=== PATIENT | male | born 1950 | race African-American/Black ===

== ENCOUNTER 2017-05-05 17:59 | Inpatient (IN) | payer BC, MEDICARE ==
[~2017-05-05] VITALS: Ht 175.3 cm; Wt 64.4 kg
[2017-05-05 18:18] LABS: BASOPHILS % 1.3 % (0.0-2.0); EOSINOPHILS % 1.1 % (0.0-5.0); HEMATOCRIT. 50.1 % (42.0-52.0); MEAN CORPUSCULAR HEMOGLOBIN 31.1 pg (28.0-32.0); MEAN CORPUSCULAR VOLUME 91.3 fL (80.0-94.0); MEAN PLATELET VOLUME 8.5 fl (7.4-10.4); MONOCYTES % 8.3 % (2.0-8.0); NEUTROPHILS % 55.3 % (40.0-76.0); PLATELET 237 x1000/uL (130-400); RED BLOOD CELL COUNT 5.48 mill/uL (4.7-6.1); RED CELL DISTRIBUTION WIDTH 16.2 % (11.6-14.6)
[2017-05-05 18:24] LABS: INR 1.1; PROTHROMBIN TIME 10.9 sec (9.4-11.6)
[2017-05-05 18:30] LABS: CHLORIDE 102 mEq/L (98-107)
[2017-05-05] MEDS ORDERED: NITROGLYCERIN 0.4MG TABLET SL SL ONE ×2 (18:30)
[2017-05-05 18:35] LABS: TROPONIN I < 0.02 ng/mL (0.00-0.04)
[2017-05-05] MEDS ORDERED: CLONIDINE 0.1MG TABLET PO PRN (19:45)
[2017-05-05] MEDS ORDERED: GUAIFENESIN 200MG/10ML SUGAR FREE UDC PO PRN (19:45)
[2017-05-05] MEDS ORDERED: NITROGLYCERIN 0.4MG TABLET SL SL PRN (19:45)
[2017-05-05] MEDS ORDERED: DIPHENHYDRAMINE 50MG/ML VIAL IV PRN (19:45)
[2017-05-05] MEDS ORDERED: MAGNESIUM/ALUMINUM HYDROXIDE/SIMETHICONE 30ML UDC PO PRN (19:45)
[2017-05-05] MEDS ORDERED: ONDANSETRON HCL 4MG/2ML VIAL IV PRN (19:45)
[2017-05-05] MEDS ORDERED: IPRATROPIUM/ALBUTEROL 0.5-3(2.5)MG/3ML NEB INH PRN (19:45)
[2017-05-05] MEDS ORDERED: ZOLPIDEM TARTRATE 5MG TABLET PO PRN (19:45)
[2017-05-05] MEDS ORDERED: NA PHOS,M-B/NA PHOS,DI-BA ENEMA 118ML PR PRN (19:45)
[2017-05-05] MEDS ORDERED: ACETAMINOPHEN 325MG TABLET PO PRN (19:45)
[2017-05-05] MEDS ORDERED: TRAMADOL 50MG TABLET PO PRN (19:45)
[2017-05-05] MEDS ORDERED: LORAZEPAM 0.5MG TABLET PO PRN (19:45)
[2017-05-05] MEDS ORDERED: MORPHINE SULFATE 2 MG/ML CPJ (NOT FOR IM USE) IV PRN (19:45)
[2017-05-05] MEDS ORDERED: DOCUSATE SODIUM 100MG CAPSULE PO PRN (19:45)
[2017-05-05] MEDS ORDERED: MORPHINE SULFATE 4 MG/ML CPJ (NOT FOR IM USE) IV PRN (20:30)
[2017-05-05] MEDS ORDERED: ENALAPRIL 2.5MG/2ML VIAL 2ML IV ONE (21:30)
[2017-05-05] MEDS ORDERED: FUROSEMIDE 40MG/4ML VIAL IVP ONE (21:30)
[2017-05-05 22:32] LABS: CREATINE KINASE MB FRACTION 1.6 ng/mL (0.5-3.6); TROPONIN I 0.04 ng/mL (0.00-0.04)
[2017-05-06] VITALS (18 sets, daily range): BP systolic 94–153; BP diastolic 49–81
[2017-05-06] MEDS ORDERED: LISI10TA5 PO (05:20)
[2017-05-06] MEDS ORDERED: [UNRECOGNIZED DRUG - CODE] TP (05:20)
[2017-05-06] MEDS ORDERED: CLOT15CR2 TP (05:20)
[2017-05-06] MEDS ORDERED: METF10002 PO (05:20)
[2017-05-06] MEDS ORDERED: ASPI-1160 PO (05:20)
[2017-05-06] MEDS ORDERED: CLOB30CR27 TP (05:20)
[2017-05-06] MEDS ORDERED: METO-385 PO (05:20)
[2017-05-06] MEDS ORDERED: ATOR-2 PO (05:20)
[2017-05-06] MEDS ORDERED: PANT40TA4 PO (05:20)
[2017-05-06 07:45] LABS: CREATINE KINASE MB FRACTION 1.2 ng/mL (0.5-3.6); TROPONIN I 0.04 ng/mL (0.00-0.04)
[2017-05-06] MEDS: ENOXAPARIN 40MG/0.4ML SYR SUBCUT SCH (09:33)
[2017-05-06] MEDS: GUAIFENESIN/DM 600MG/30MG ER TAB 12HR PO SCH ×2 (09:34→21:37)
[2017-05-06] MEDS: LISINOPRIL 20MG TABLET PO SCH ×2 (09:35→21:38)
[2017-05-06] MEDS: SPIRONOLACTONE 25MG TABLET PO SCH ×2 (09:35→21:38)
[2017-05-06] MEDS: ASPIRIN 325MG EC TABLET PO SCH (09:35)
[2017-05-06] MEDS: FUROSEMIDE 40MG/4ML VIAL IVP SCH ×2 (09:36→21:38)
[2017-05-06] MEDS: FAMOTIDINE 20MG/2ML VIAL IV SCH ×2 (09:36→21:38)
[2017-05-06] MEDS ORDERED: DEXTROSE 50% WATER 50ML SYRINGE IV PRN (11:30)
[2017-05-06] MEDS: INSULIN LISPRO 100 UNITS/ML SUBCUT SCH ×3 (12:50→21:53)
[2017-05-06] MEDS: BLOOD SUGAR DIAGNOSTIC STRIP TEST SCH ×3 (12:51→21:38)
[2017-05-06] MEDS ORDERED: METOCLOPRAMIDE HCL 10MG/2ML VIAL IV NR (13:30)
[2017-05-06 13:45] LABS: BG BASE EXCESS 0.8 mmol/L (-2.0-2.0); BG CARBOXYHEMOGLOBIN 1.4 % (0.5-1.5); BG DEOXYHEMOGLOBIN 4.2 % (0.0-5.0); BG HCO3 ACT 25.2 mmol/L (22.0-26.0); BG METHEMOGLOBIN 0.3 % (0.0-1.5); BG OXYGEN SATURATION 95.7 % (92.0-98.5); BG OXYHEMOGLOBIN 94.1 % (94.0-97.0); BG PCO2 39.8 mmHg (35.0-45.0); BG PO2 80.6 mmHg (75.0-100.0); BG SAMPLE SITE RIGHT RADIAL; BG TOTAL HEMOGLOBIN 15.2 g/dL (12.0-18.0); BG VENT MODE NASAL CANNULA
[2017-05-06] MEDS ORDERED: CHLORPROMAZINE HCL 25MG/1ML AMP IM NR (18:00)
[2017-05-07] VITALS (10 sets, daily range): BP systolic 109–130; BP diastolic 53–75
[2017-05-07] MEDS: INSULIN LISPRO 100 UNITS/ML SUBCUT SCH ×2 (08:00→13:13)
[2017-05-07 08:06] LABS: BASOPHILS % 0.6 % (0.0-2.0); EOSINOPHILS % 0.9 % (0.0-5.0); HEMATOCRIT. 42.4 % (42.0-52.0); HEMOGLOBIN. 14.1 g/dL (14.0-18.0); LYMPHOCYTES % 20.2 % (20.0-50.0); MEAN CORPUSCULAR HEMOGLOBIN 29.9 pg (28.0-32.0); MEAN PLATELET VOLUME 8.7 fl (7.4-10.4); MONOCYTES % 9.7 % (2.0-8.0); NEUTROPHILS % 68.6 % (40.0-76.0); PLATELET 207 x1000/uL (130-400); RED BLOOD CELL COUNT 4.71 mill/uL (4.7-6.1); RED CELL DISTRIBUTION WIDTH 15.4 % (11.6-14.6)
[2017-05-07] MEDS: BLOOD SUGAR DIAGNOSTIC STRIP TEST SCH ×2 (08:16→13:06)
[2017-05-07 08:22] LABS: CHLORIDE 102 mEq/L (98-107)
[2017-05-07] MEDS: LISINOPRIL 20MG TABLET PO SCH (09:58)
[2017-05-07] MEDS: FAMOTIDINE 20MG/2ML VIAL IV SCH (10:01)
[2017-05-07] MEDS: FUROSEMIDE 40MG/4ML VIAL IVP SCH (10:01)
[2017-05-07] MEDS: ASPIRIN 325MG EC TABLET PO SCH (10:06)
[2017-05-07] MEDS: GUAIFENESIN/DM 600MG/30MG ER TAB 12HR PO SCH (10:06)
[2017-05-07] MEDS: SPIRONOLACTONE 25MG TABLET PO SCH (10:08)
[2017-05-07] MEDS: ENOXAPARIN 40MG/0.4ML SYR SUBCUT SCH (10:10)
== END 2017-05-07 15:08 | disposition home or self-care (01) | DRG 291 ==
LOC: ER 18:11 → EDBEDREQ 18:32 → 5EST 19:09 → EDBEDREQ 19:18 → EDBEDREQTM 19:18 → SUPCPDRO 19:31 → ENRESERV 22:47
PROVIDERS: ADMIT Internal Medicine; ATTEND Internal Medicine
PROC: 5A09357 Assistance with Respiratory Ventilation, Less than 24 Consecutive Hours, Continuous Positive Airway Pressure (ICD-10-PCS; principal; 2017-05-05)
DX: I11.0 Hypertensive heart disease with heart failure (principal); J96.00 Acute respiratory failure, unspecified whether with hypoxia or hypercapnia; J84.9 Interstitial pulmonary disease, unspecified; E87.1 Hypo-osmolality and hyponatremia; I16.1 Hypertensive emergency; E11.9 Type 2 diabetes mellitus without complications; I50.43 Acute on chronic combined systolic (congestive) and diastolic (congestive) heart failure; F17.210 Nicotine dependence, cigarettes, uncomplicated; I25.10 Atherosclerotic heart disease of native coronary artery without angina pectoris; E78.5 Hyperlipidemia, unspecified; I25.2 Old myocardial infarction; Z95.5 Presence of coronary angioplasty implant and graft; Z88.0 Allergy status to penicillin
CPT/HCPCS: 36415; 36600; 71045; 80048; 80053; 80061; 82375; 82550; 82553; 82805; 82962; 83036; 83880; 84484; 85025; 85610; 93005; 93306; 93970; 94660; 99291; J1650; J1815; J1940; J2405; J2765; J3230; J3490

== ENCOUNTER 2018-04-01 17:06 | Inpatient (IN) | payer MEDICARE, OTHER ==
[~2018-04-01] VITALS: Ht 175.3 cm; Wt 63.0 kg
[~2018-04-01 17:06] MED LIST: ASPI-1160 PO; ATOR-2 PO; CLOB30CR27 TP; CLOT15CR2 TP; LISI10TA5 PO; METF-416 PO; METO-385 PO; PANT40TA4 PO; [UNRECOGNIZED DRUG - CODE] TP
[2018-04-01] MEDS ORDERED: ALBUTEROL (0.083%) 2.5MG/3ML NEB HHN STA (17:09)
[2018-04-01] MEDS ORDERED: ASPIRIN 81MG TABLET PO ONE (17:15)
[2018-04-01 17:44] LABS: BG BASE EXCESS -2.3 mmol/L (-2.0-2.0); BG BILEVEL POS AIRWAY PRESSURE 20/5; BG CARBOXYHEMOGLOBIN 3.2 % (0.5-1.5); BG DEOXYHEMOGLOBIN 2.3 % (0.0-5.0); BG FRACTION INSPIRED OXYGEN 100; BG HCO3 ACT 23.3 mmol/L (22.0-26.0); BG OXYGEN SATURATION 97.6 % (92.0-98.5); BG OXYHEMOGLOBIN 94.5 % (94.0-97.0); BG PCO2 42.9 mmHg (35.0-45.0); BG PH 7.352 (7.350-7.450); BG SAMPLE SITE RIGHT RADIAL; BG TOTAL HEMOGLOBIN 13.7 g/dL (12.0-18.0); BG VENT MODE MASK - BIPAP
[2018-04-01 18:08] LABS: CHLORIDE 104 mEq/L (98-107)
[2018-04-01 18:21] LABS: BASOPHILS % 0.6 % (0.0-2.0); EOSINOPHILS % 0.9 % (0.0-5.0); HEMATOCRIT. 41.7 % (42.0-52.0); HEMOGLOBIN. 13.6 g/dL (14.0-18.0); LYMPHOCYTES % 18.6 % (20.0-50.0); MEAN CORPUSCULAR VOLUME 88.8 fL (80.0-94.0); MEAN PLATELET VOLUME 8.9 fl (7.4-10.4); MONOCYTES % 8.5 % (2.0-8.0); NEUTROPHILS % 71.4 % (40.0-76.0); PLATELET 196 x1000/uL (130-400); RED CELL DISTRIBUTION WIDTH 18.2 % (11.6-14.6)
[2018-04-01 18:26] LABS: INR 1.1; PROTHROMBIN TIME 11.4 sec (9.1-11.1)
[2018-04-01] MEDS ORDERED: HEPARIN 25,000 UNITS PREMIX 500 ML IV ONE (18:30)
[2018-04-01] MEDS ORDERED: HEPARIN 5000 UNITS/ML VIAL IV ONE (18:30)
[2018-04-01] MEDS ORDERED: FUROSEMIDE 40MG/4ML VIAL IVP ONE (19:45)
[2018-04-01] MEDS ORDERED: HEPARIN BOLUS PRN aPTT <30 IV (20:00)
[2018-04-01] MEDS ORDERED: HEPARIN 25,000 UNITS PREMIX 500 ML IV SCH (20:00)
[2018-04-01] MEDS ORDERED: HEPARIN 60 UNITS/KG BOLUS IV SCH (20:00)
[2018-04-01 22:00] VITALS: BP 149/84
[2018-04-01] MEDS ORDERED: MORPHINE SULFATE 4 MG/ML CPJ (NOT FOR IM USE) IV PRN (22:15)
[2018-04-01] MEDS ORDERED: ENOXAPARIN 40MG/0.4ML SYR SUBCUT SCH (22:15)
[2018-04-01] MEDS ORDERED: IPRATROPIUM/ALBUTEROL 0.5-3(2.5)MG/3ML NEB INH PRN (22:15)
[2018-04-01] MEDS ORDERED: ACETAMINOPHEN 325MG TABLET PO PRN (22:15)
[2018-04-01] MEDS ORDERED: GUAIFENESIN 200MG/10ML SUGAR FREE UDC PO PRN (22:15)
[2018-04-01] MEDS ORDERED: ONDANSETRON HCL 4MG/2ML INJ IV PRN (22:15)
[2018-04-01] MEDS ORDERED: HYDROCODONE/ACETAMINOPHEN 5/325MG TABLET PO PRN (22:15)
[2018-04-01] MEDS ORDERED: LORAZEPAM 2MG/ML CPJ IV PRN (22:15)
[2018-04-01 22:30] VITALS: BP 148/84
[2018-04-02] VITALS (11 sets, daily range): BP systolic 127–151; BP diastolic 52–88
[2018-04-02 02:43] LABS: BASOPHILS % 0.5 % (0.0-2.0); EOSINOPHILS % 0.3 % (0.0-5.0); HEMATOCRIT. 39.1 % (42.0-52.0); LYMPHOCYTES % 18.5 % (20.0-50.0); MEAN CORPUSCULAR HEMOGLOBIN 28.9 pg (28.0-32.0); MEAN CORPUSCULAR VOLUME 87.1 fL (80.0-94.0); MEAN PLATELET VOLUME 8.4 fl (7.4-10.4); MONOCYTES % 9.9 % (2.0-8.0); NEUTROPHILS % 70.8 % (40.0-76.0); PLATELET 170 x1000/uL (130-400); RED BLOOD CELL COUNT 4.48 mill/uL (4.7-6.1); RED CELL DISTRIBUTION WIDTH 17.3 % (11.6-14.6)
[2018-04-02 02:48] LABS: CHLORIDE 104 mEq/L (98-107)
[2018-04-02 02:59] LABS: CREATINE KINASE 91 IU/L (39-308)
[2018-04-02 03:01] LABS: CREATINE KINASE MB FRACTION 1.8 ng/mL (0.5-3.6)
[2018-04-02] MEDS: HEPARIN BOLUS PRN aPTT 30-44 IV ×2 (05:34→12:52)
[2018-04-02] MEDS: ASPIRIN 81MG TABLET PO SCH (08:20)
[2018-04-02] MEDS: MULTIVITAMINS,THER W-MINERALS TABLET PO SCH (08:20)
[2018-04-02] MEDS ORDERED: ASPIRIN 325MG EC TABLET PO SCH (09:00)
[2018-04-02] MEDS ORDERED: POTASSIUM CHLORIDE 20MEQ TABLET SR PO NR (11:30)
[2018-04-02] MEDS: FUROSEMIDE 40MG/4ML VIAL IVP SCH ×2 (11:44→18:05)
[2018-04-02 12:57] LABS: CREATINE KINASE MB FRACTION 1.2 ng/mL (0.5-3.6)
[2018-04-02] MEDS ORDERED: METHYLPREDNISOLONE SOD SUCC 125 MG/2 ML VIAL IV SCH (14:00)
[2018-04-02 15:38] LABS: CLARITY URINE CLEAR (CLEAR); COLOR URINE YELLOW (YELLOW); KETONES URINE NEGATIVE (NEGATIVE); LEUKOCYTE ESTERASE URINE NEGATIVE (NEGATIVE); NITRITE URINE NEGATIVE (NEGATIVE); OCCULT BLOOD URINE TRACE (NEGATIVE); PROTEIN URINE TRACE (NEGATIVE); SPECIFIC GRAVITY URINE 1.008 (1.005-1.030)
[2018-04-02 16:16] LABS: *AMPHETAMINES SCREEN URINE NEGATIVE (NEGATIVE); *BARBITURATES SCREEN URINE NEGATIVE (NEGATIVE); *BENZODIAZEPINES SCREEN URINE NEGATIVE (NEGATIVE); *COCAINE SCREEN URINE NEGATIVE (NEGATIVE); METHADONE URINE SCREEN NEGATIVE (NEGATIVE); OPIATES URINE SCREEN NEGATIVE (NEGATIVE)
[2018-04-02 16:17] LABS: CANNABINOID URINE SCREEN NEGATIVE (NEGATIVE); PHENCYCLIDINE URINE SCREEN NEGATIVE (NEGATIVE)
[2018-04-02] MEDS: NICOTINE 14MG PATCH TD SCH (20:15)
[2018-04-02] MEDS: BUDESONIDE 0.5MG/2ML NEB HHN SCH (21:12)
[2018-04-02] MEDS: NITROGLYCERIN OINT 1GM/INCH UDPKT TD SCH (21:39)
[2018-04-02] MEDS ORDERED: IOHEXOL-350 100 ML BOTTLE ONE (23:05)
[2018-04-02] MEDS ORDERED: DEXTROSE 50% WATER 50ML SYRINGE IV PRN (23:30)
[2018-04-03] VITALS (24 sets, daily range): BP systolic 115–151; BP diastolic 47–88
[2018-04-03] MEDS: IPRATROPIUM/ALBUTEROL 0.5-3(2.5)MG/3ML NEB HHN SCH ×3 (01:06→13:10)
[2018-04-03] MEDS: NITROGLYCERIN OINT 1GM/INCH UDPKT TD SCH ×3 (03:10→14:10)
[2018-04-03] MEDS: INSULIN LISPRO 100 UNITS/ML SUBCUT SCH ×3 (07:20→17:22)
[2018-04-03 07:24] LABS: CHLORIDE 103 mEq/L (98-107)
[2018-04-03 07:25] LABS: BASOPHILS % 0.3 % (0.0-2.0); HEMATOCRIT. 35.6 % (42.0-52.0); HEMOGLOBIN. 12.1 g/dL (14.0-18.0); LYMPHOCYTES % 15.3 % (20.0-50.0); MEAN CORPUSCULAR HEMOGLOBIN 29.4 pg (28.0-32.0); MEAN CORPUSCULAR VOLUME 86.9 fL (80.0-94.0); MEAN PLATELET VOLUME 8.7 fl (7.4-10.4); NEUTROPHILS % 74.4 % (40.0-76.0); PLATELET 164 x1000/uL (130-400); RED CELL DISTRIBUTION WIDTH 17.7 % (11.6-14.6)
[2018-04-03 07:42] LABS: CREATINE KINASE MB FRACTION 1.4 ng/mL (0.5-3.6)
[2018-04-03] MEDS: ASPIRIN 81MG TABLET PO SCH (08:21)
[2018-04-03] MEDS: FUROSEMIDE 40MG/4ML VIAL IVP SCH ×2 (08:21→17:20)
[2018-04-03] MEDS: BUDESONIDE 0.5MG/2ML NEB HHN SCH (08:46)
[2018-04-03] MEDS: NICOTINE 14MG PATCH TD SCH (09:00)
[2018-04-03] MEDS ORDERED: LEVOFLOXACIN 500MG TABLET PO SCH (11:00)
[2018-04-03] MEDS: BLOOD SUGAR DIAGNOSTIC STRIP TEST SCH ×2 (11:50→16:50)
[2018-04-03] MEDS ORDERED: IODIXANOL 320MG/ML 100 ML BOTTLE IV ONE (11:59)
[2018-04-03] MEDS ORDERED: IOHEXOL-300 100 ML BOTTLE ONE (11:59)
[2018-04-03] MEDS ORDERED: LIDOCAINE HCL 1% 20ML VIAL (Pyxis) INJ ONE (11:59)
[2018-04-03] MEDS ORDERED: ASPIRIN/SOD BICARB/CITRIC ACID 324MG TAB EFF ONE (12:00)
[2018-04-03] MEDS ORDERED: MIDAZOLAM HCL 2 MG/2 ML VIAL ONE (12:12)
[2018-04-03] MEDS ORDERED: FENTANYL CITRATE/PF 50MCG/ML 2ML VIAL ONE (12:12)
[2018-04-03] MEDS ORDERED: ONDANSETRON HCL 4MG/2ML INJ IV PRN (13:00)
[2018-04-03] MEDS ORDERED: ACETAMINOPHEN 325MG TABLET PO PRN (13:00)
[2018-04-03] MEDS ORDERED: SODIUM CHLORIDE 0.45% 400 ML IV ONE (13:00)
[2018-04-03] MEDS ORDERED: MORPHINE SULFATE 4 MG/ML CPJ (NOT FOR IM USE) IV PRN (13:00)
[2018-04-03] MEDS ORDERED: ATROPINE SULFATE 1MG/10ML SYR IV PRN (13:00)
[2018-04-03] MEDS: MULTIVITAMINS,THER W-MINERALS TABLET PO SCH (14:07)
[2018-04-03] MEDS ORDERED: HEPARIN SODIUM 1,000 UNIT/1ML VIAL IV ONE (15:49)
[2018-04-03] MEDS ORDERED: NITROGLYCERIN 50MCG/ML 10ML VIAL (CATH LAB) IV ONE (16:01)
[2018-04-03] MEDS ORDERED: NICARDIPINE 100MCG/ML 10ML VIAL (CATH LAB) IV ONE (16:01)
[2018-04-03] MEDS ORDERED: METHYLPREDNISOLONE SOD SUCC 125 MG/2 ML VIAL IV SCH (22:00)
== END 2018-04-03 20:25 | disposition left against medical advice (07) | DRG 280 ==
LOC: ER 17:06 → 3WST 19:41 → EDBEDREQTM 19:45 → EDBEDREQSVC 19:45 → EDBEDREQ 19:45 → CANRESERV 19:56 → ENRESERV 19:56
PROVIDERS: ADMIT Internal Medicine Nephrology; ATTEND Internal Medicine Nephrology
PROC: 5A09357 Assistance with Respiratory Ventilation, Less than 24 Consecutive Hours, Continuous Positive Airway Pressure (ICD-10-PCS; principal; 2018-04-01)
PROC: 4A023N7 Measurement of Cardiac Sampling and Pressure, Left Heart, Percutaneous Approach (ICD-10-PCS; 2018-04-03)
PROC: B2111ZZ Fluoroscopy of Multiple Coronary Arteries using Low Osmolar Contrast (ICD-10-PCS; 2018-04-03)
PROC: B2181ZZ Fluoroscopy of Left Internal Mammary Bypass Graft using Low Osmolar Contrast (ICD-10-PCS; 2018-04-03)
PROC: B2151ZZ Fluoroscopy of Left Heart using Low Osmolar Contrast (ICD-10-PCS; 2018-04-03)
DX: I21.4 Non-ST elevation (NSTEMI) myocardial infarction (principal); J96.00 Acute respiratory failure, unspecified whether with hypoxia or hypercapnia; I50.23 Acute on chronic systolic (congestive) heart failure; E43 Unspecified severe protein-calorie malnutrition; J44.1 Chronic obstructive pulmonary disease with (acute) exacerbation; I25.10 Atherosclerotic heart disease of native coronary artery without angina pectoris; I11.0 Hypertensive heart disease with heart failure; E11.65 Type 2 diabetes mellitus with hyperglycemia; E78.5 Hyperlipidemia, unspecified; K21.9 Gastro-esophageal reflux disease without esophagitis; E78.00 Pure hypercholesterolemia, unspecified; I25.5 Ischemic cardiomyopathy; Z53.21 Procedure and treatment not carried out due to patient leaving prior to being seen by health care provider; F17.210 Nicotine dependence, cigarettes, uncomplicated; I25.2 Old myocardial infarction; Z95.5 Presence of coronary angioplasty implant and graft; Z68.20 Body mass index [BMI] 20.0-20.9, adult; Z88.0 Allergy status to penicillin; Z79.899 Other long term (current) drug therapy; Z79.82 Long term (current) use of aspirin
CPT/HCPCS: 36415; 36600; 71045; 71275; 80048; 80305; 82375; 82550; 82553; 82805; 82962; 83735; 83880; 84443; 84484; 85379; 87804; 93005; 93306; 93459; 93970; 94640; 94660; 96374; 96375; 97162; 99291; C1769; C1887; C1893; J1644; J1815; J1940; J2250; J2930; J3010; J3490; J7050; J7611; J7620; J7626; Q9967

== ENCOUNTER 2019-04-20 01:21 | Inpatient (IN) | payer MEDICARE, OTHER ==
[2019-04-20] VITALS (9 sets, daily range): BP systolic 96–138; BP diastolic 59–84
[~2019-04-20] VITALS: Ht 175.3 cm; Wt 63.6 kg
[~2019-04-20 01:21] MED LIST changes: +BACL20TA MT; -PANT40TA4 PO
[2019-04-20] MEDS ORDERED: NITROGLYCERIN OINT 1GM/INCH UDPKT TD ONE (01:30)
[2019-04-20] MEDS ORDERED: FUROSEMIDE 40MG/4ML VIAL IV ONE (01:30)
[2019-04-20] MEDS ORDERED: ASPIRIN 81MG TABLET PO ONE (01:30)
[2019-04-20 01:57] LABS: BG BASE EXCESS -4.5 mmol/L (-2.0-2.0); BG BILEVEL POS AIRWAY PRESSURE 15/5; BG DEOXYHEMOGLOBIN 5.2 % (0.0-5.0); BG FRACTION INSPIRED OXYGEN 60; BG HCO3 ACT 21.1 mmol/L (22.0-26.0); BG METHEMOGLOBIN 0.2 % (0.0-1.5); BG OXYGEN SATURATION 94.6 % (92.0-98.5); BG OXYHEMOGLOBIN 90.6 % (94.0-97.0); BG PCO2 40.5 mmHg (35.0-45.0); BG PH 7.334 (7.350-7.450); BG PO2 82.2 mmHg (75.0-100.0); BG SAMPLE SITE RIGHT RADIAL; BG TOTAL HEMOGLOBIN 11.6 g/dL (12.0-18.0); BG VENT MODE MASK - BIPAP; BG VENT RATE 16 set
[2019-04-20 02:06] LABS: CHLORIDE 104 mEq/L (98-107); HEMATOCRIT. 33.4 % (42.0-52.0); HEMOGLOBIN. 10.5 g/dL (14.0-18.0); MEAN CORPUSCULAR HEMOGLOBIN 21.5 pg (28.0-32.0); MEAN CORPUSCULAR VOLUME 68.1 fL (80.0-94.0); MEAN PLATELET VOLUME 8.8 fl (7.4-10.4); PLATELET 223 x1000/uL (130-400); RED BLOOD CELL COUNT 4.91 mill/uL (4.7-6.1); RED CELL DISTRIBUTION WIDTH 21.6 % (11.6-14.6)
[2019-04-20 02:08] LABS: PROTHROMBIN TIME 11.2 sec (9.6-11.0)
[2019-04-20] MEDS ORDERED: GUAIFENESIN 200MG/10ML SUGAR FREE UDC PO PRN (06:00)
[2019-04-20] MEDS ORDERED: ACETAMINOPHEN 325MG TABLET PO PRN (06:00)
[2019-04-20] MEDS ORDERED: ONDANSETRON HCL 4MG/2ML INJ IV PRN (06:00)
[2019-04-20] MEDS ORDERED: DOCUSATE SODIUM 100MG CAPSULE PO PRN (06:00)
[2019-04-20] MEDS ORDERED: MAGNESIUM/ALUMINUM HYDROXIDE/SIMETHICONE 30ML UDC PO PRN (06:00)
[2019-04-20] MEDS ORDERED: CLONIDINE 0.1MG TABLET PO PRN (06:00)
[2019-04-20] MEDS ORDERED: IPRATROPIUM/ALBUTEROL 0.5-3(2.5)MG/3ML NEB NEB PRN (06:00)
[2019-04-20] MEDS ORDERED: METOLAZONE 10MG TABLET PO SCH (06:00)
[2019-04-20] MEDS ORDERED: NITROGLYCERIN 0.4MG TABLET SL SL PRN (06:00)
[2019-04-20] MEDS ORDERED: KETOROLAC 15MG/ML VIAL IV PRN (06:15)
[2019-04-20] MEDS: FUROSEMIDE 40MG/4ML VIAL IV SCH ×2 (06:44→17:18)
[2019-04-20] MEDS: SPIRONOLACTONE 25MG TABLET PO SCH ×2 (06:45→17:19)
[2019-04-20] MEDS: GUAIFENESIN 600MG ER TABLET PO SCH ×2 (08:08→20:47)
[2019-04-20] MEDS: ENOXAPARIN 40MG/0.4ML SYR SUBCUT SCH (08:08)
[2019-04-20] MEDS: FAMOTIDINE 20MG TABLET PO SCH ×2 (08:08→20:47)
[2019-04-20] MEDS: LISINOPRIL 2.5MG TABLET PO SCH ×2 (08:09→20:49)
[2019-04-20] MEDS: ASCORBIC ACID 500 MG TABLET PO SCH ×2 (08:09→20:47)
[2019-04-20 08:55] LABS: PLATELET ESTIMATE NORMAL
[2019-04-20 10:53] LABS: FOLIC ACID (FOLATE) SERUM 18.9 ng/mL (>5.38)
[2019-04-20] MEDS ORDERED: DEXTROSE 50% WATER 50ML SYRINGE IV PRN (12:00)
[2019-04-20] MEDS: BLOOD SUGAR DIAGNOSTIC STRIP TEST SCH ×3 (13:08→20:49)
[2019-04-20] MEDS: INSULIN LISPRO 100 UNITS/ML SUBCUT SCH ×3 (13:08→21:59)
[2019-04-20 15:28] LABS: CREATINE KINASE MB FRACTION 1.6 ng/mL (0.5-3.6)
[2019-04-20] MEDS ORDERED: ZOLPIDEM TARTRATE 5MG TABLET PO PRN (21:00)
[2019-04-21] VITALS (10 sets, daily range): BP systolic 97–119; BP diastolic 55–70
[2019-04-21] MEDS: FUROSEMIDE 40MG/4ML VIAL IV SCH ×2 (05:59→18:16)
[2019-04-21] MEDS: SPIRONOLACTONE 25MG TABLET PO SCH ×2 (06:00→18:16)
[2019-04-21 06:14] LABS: CHLORIDE 99 mEq/L (98-107)
[2019-04-21 06:35] LABS: HEMATOCRIT. 33.6 % (42.0-52.0); HEMOGLOBIN. 10.8 g/dL (14.0-18.0); MEAN CORPUSCULAR HEMOGLOBIN 21.6 pg (28.0-32.0); MEAN PLATELET VOLUME 8.6 fl (7.4-10.4); PLATELET 229 x1000/uL (130-400); RED BLOOD CELL COUNT 5.01 mill/uL (4.7-6.1); RED CELL DISTRIBUTION WIDTH 21.5 % (11.6-14.6)
[2019-04-21] MEDS: INSULIN LISPRO 100 UNITS/ML SUBCUT SCH ×4 (08:00→20:51)
[2019-04-21] MEDS: BLOOD SUGAR DIAGNOSTIC STRIP TEST SCH ×4 (08:52→20:53)
[2019-04-21] MEDS: ENOXAPARIN 40MG/0.4ML SYR SUBCUT SCH (08:58)
[2019-04-21] MEDS: FAMOTIDINE 20MG TABLET PO SCH ×2 (08:59→20:52)
[2019-04-21] MEDS: GUAIFENESIN 600MG ER TABLET PO SCH ×2 (08:59→20:53)
[2019-04-21] MEDS: ASCORBIC ACID 500 MG TABLET PO SCH ×2 (08:59→20:53)
[2019-04-21] MEDS: LISINOPRIL 2.5MG TABLET PO SCH ×2 (09:00→20:53)
[2019-04-21 13:48] LABS: PLATELET ESTIMATE NORMAL
[2019-04-22] VITALS (9 sets, daily range): BP systolic 94–144; BP diastolic 56–76
[2019-04-22] MEDS: FUROSEMIDE 40MG/4ML VIAL IV SCH (06:01)
[2019-04-22] MEDS: SPIRONOLACTONE 25MG TABLET PO SCH (06:03)
[2019-04-22] MEDS: BLOOD SUGAR DIAGNOSTIC STRIP TEST SCH (07:30)
[2019-04-22] MEDS: LISINOPRIL 2.5MG TABLET PO SCH (09:00)
[2019-04-22] MEDS: FAMOTIDINE 20MG TABLET PO SCH (09:10)
[2019-04-22] MEDS: GUAIFENESIN 600MG ER TABLET PO SCH (09:10)
[2019-04-22] MEDS: ASCORBIC ACID 500 MG TABLET PO SCH (09:11)
[2019-04-22] MEDS: ENOXAPARIN 40MG/0.4ML SYR SUBCUT SCH (09:12)
[2019-04-22] MEDS: INSULIN LISPRO 100 UNITS/ML SUBCUT SCH (09:13)
== END 2019-04-22 13:15 | disposition home or self-care (01) | DRG 189 ==
LOC: ER 01:21 → 5EST 03:41 → ENRESERV 04:06
PROVIDERS: ADMIT Internal Medicine; ATTEND Internal Medicine
PROC: 5A09357 Assistance with Respiratory Ventilation, Less than 24 Consecutive Hours, Continuous Positive Airway Pressure (ICD-10-PCS; principal; 2019-04-20)
DX: J96.00 Acute respiratory failure, unspecified whether with hypoxia or hypercapnia (principal); I50.43 Acute on chronic combined systolic (congestive) and diastolic (congestive) heart failure; I42.9 Cardiomyopathy, unspecified; I11.0 Hypertensive heart disease with heart failure; J44.9 Chronic obstructive pulmonary disease, unspecified; I25.2 Old myocardial infarction; I25.10 Atherosclerotic heart disease of native coronary artery without angina pectoris; D63.8 Anemia in other chronic diseases classified elsewhere; E11.65 Type 2 diabetes mellitus with hyperglycemia; E78.5 Hyperlipidemia, unspecified; Z79.4 Long term (current) use of insulin; Z79.899 Other long term (current) drug therapy; Z95.1 Presence of aortocoronary bypass graft; Z95.5 Presence of coronary angioplasty implant and graft; Z82.49 Family history of ischemic heart disease and other diseases of the circulatory system; Z83.3 Family history of diabetes mellitus; Z87.891 Personal history of nicotine dependence; Z79.82 Long term (current) use of aspirin; Z88.8 Allergy status to other drugs, medicaments and biological substances
CPT/HCPCS: 36415; 36600; 71045; 80053; 80061; 82375; 82550; 82553; 82607; 82746; 82805; 82962; 83036; 83540; 83550; 83735; 83880; 84100; 84484; 85025; 93005; 93970; 94660; 96374; 99291; J1650; J1815; J1940; J2405

== ENCOUNTER 2019-07-17 01:35 | Inpatient (IN) | payer MEDICARE, OTHER ==
[~2019-07-17] VITALS: Ht 176.5 cm; Wt 70.3 kg
[2019-07-17] MEDS ORDERED: ONDANSETRON HCL 4MG/2ML INJ IV STA (01:48)
[2019-07-17] MEDS ORDERED: FUROSEMIDE 40MG/4ML VIAL IV ONE (02:00)
[2019-07-17] MEDS ORDERED: ASPIRIN 81MG TABLET PO ONE (02:00)
[2019-07-17] MEDS ORDERED: NITROGLYCERIN OINT 1GM/INCH UDPKT TD ONE (02:00)
[2019-07-17 02:14] LABS: CHLORIDE 104 mEq/L (98-107)
[2019-07-17 02:17] LABS: HEMATOCRIT. 36.2 % (42.0-52.0); HEMOGLOBIN. 11.6 g/dL (14.0-18.0); MEAN CORPUSCULAR HEMOGLOBIN 23.3 pg (28.0-32.0); MEAN CORPUSCULAR VOLUME 72.6 fL (80.0-94.0); MEAN PLATELET VOLUME 9.4 fl (7.4-10.4); PLATELET 222 x1000/uL (130-400); RED BLOOD CELL COUNT 4.99 mill/uL (4.7-6.1); RED CELL DISTRIBUTION WIDTH 26.4 % (11.6-14.6)
[2019-07-17 02:20] LABS: BG BILEVEL POS AIRWAY PRESSURE S/T: 18/5; BG CARBOXYHEMOGLOBIN 3.8 % (0.5-1.5); BG DEOXYHEMOGLOBIN 6.3 % (0.0-5.0); BG FRACTION INSPIRED OXYGEN 60; BG HCO3 ACT 21.9 mmol/L (22.0-26.0); BG METHEMOGLOBIN 0.2 % (0.0-1.5); BG OXYGEN SATURATION 93.4 % (92.0-98.5); BG OXYHEMOGLOBIN 89.7 % (94.0-97.0); BG PCO2 42.9 mmHg (35.0-45.0); BG PH 7.325 (7.350-7.450); BG PO2 76.3 mmHg (75.0-100.0); BG SAMPLE SITE RIGHT RADIAL; BG TOTAL HEMOGLOBIN 12.1 g/dL (12.0-18.0); BG VENT MODE MASK - BIPAP; BG VENT RATE 18 set
[2019-07-17 03:43] LABS: PLATELET ESTIMATE NORMAL
[2019-07-17] MEDS ORDERED: ONDANSETRON HCL 4MG/2ML INJ IV PRN (06:00)
[2019-07-17] MEDS ORDERED: MORPHINE SULFATE 2 MG/ML CPJ (NOT FOR IM USE) IV PRN (06:00)
[2019-07-17] MEDS ORDERED: DOCUSATE SODIUM 100MG CAPSULE PO PRN (06:00)
[2019-07-17] MEDS ORDERED: CLONIDINE 0.1MG TABLET PO PRN (06:00)
[2019-07-17] MEDS ORDERED: HYDROCODONE/ACETAMINOPHEN 5/325MG TABLET PO PRN (06:00)
[2019-07-17] MEDS ORDERED: ACETAMINOPHEN 325MG TABLET PO PRN (06:00)
[2019-07-17] MEDS ORDERED: GUAIFENESIN 200MG/10ML SUGAR FREE UDC PO PRN (06:00)
[2019-07-17] MEDS: ENOXAPARIN 40MG/0.4ML SYR SUBCUT SCH (08:00)
[2019-07-17] MEDS ORDERED: FUROSEMIDE 40MG/4ML VIAL IV SCH (09:00)
[2019-07-17] MEDS: AMLODIPINE 10MG TABLET PO SCH (09:03)
[2019-07-17] MEDS ORDERED: DEXTROSE 50% WATER 50ML SYRINGE IV PRN (09:15)
[2019-07-17] MEDS: BLOOD SUGAR DIAGNOSTIC STRIP TEST SCH ×3 (09:24→21:01)
[2019-07-17] MEDS: INSULIN LISPRO 100 UNITS/ML SUBCUT SCH ×2 (09:32→13:20)
[2019-07-17] MEDS ORDERED: LISINOPRIL 10MG TABLET PO NR (15:00)
[2019-07-17] MEDS ORDERED: METFORMIN HCL 500MG TABLET PO NR (17:15)
[2019-07-17] MEDS: FUROSEMIDE 40MG/4ML VIAL IV SCH (17:15)
[2019-07-17] MEDS ORDERED: BACLOFEN 10MG TABLET PO NR (17:30)
[2019-07-17] MEDS ORDERED: BACLOFEN 20MG TABLET PO NR (17:30)
[2019-07-17 22:40] VITALS: BP 107/67
[2019-07-18 00:43] VITALS: BP 104/54
[2019-07-18 04:28] VITALS: BP 106/57
[2019-07-18] MEDS ORDERED: DEXTROSE 50% WATER 50ML SYRINGE IV PRN (06:30)
[2019-07-18 06:56] LABS: BASOPHILS % 1.1 % (0.0-2.0); HEMATOCRIT. 32.9 % (42.0-52.0); HEMOGLOBIN. 10.6 g/dL (14.0-18.0); LYMPHOCYTES % 19.6 % (20.0-50.0); MEAN CORPUSCULAR HEMOGLOBIN 23.3 pg (28.0-32.0); MEAN CORPUSCULAR VOLUME 72.5 fL (80.0-94.0); MEAN PLATELET VOLUME 9.1 fl (7.4-10.4); MONOCYTES % 10.1 % (2.0-8.0); NEUTROPHILS % 67.2 % (40.0-76.0); PLATELET 172 x1000/uL (130-400); RED BLOOD CELL COUNT 4.53 mill/uL (4.7-6.1); RED CELL DISTRIBUTION WIDTH 30.6 % (11.6-14.6)
[2019-07-18] MEDS ORDERED: BLOOD SUGAR DIAGNOSTIC STRIP TEST SCH (07:20)
[2019-07-18 07:31] LABS: CHLORIDE 105 mEq/L (98-107)
[2019-07-18] MEDS ORDERED: INSULIN LISPRO 100 UNITS/ML SUBCUT SCH (07:50)
[2019-07-18] MEDS ORDERED: METFORMIN HCL 500MG TABLET PO SCH (07:50)
[2019-07-18 08:30] VITALS: BP 98/55
[2019-07-18] MEDS: AMLODIPINE 10MG TABLET PO SCH (08:50)
[2019-07-18] MEDS: ENOXAPARIN 40MG/0.4ML SYR SUBCUT SCH (08:53)
[2019-07-18] MEDS ORDERED: BACLOFEN 10MG TABLET PO SCH (09:00)
[2019-07-18] MEDS ORDERED: LISINOPRIL 10MG TABLET PO SCH (09:00)
[2019-07-18] MEDS ORDERED: CARVEDILOL 3.125 MG TABLET PO SCH (09:00)
[2019-07-18 10:27] VITALS: BP 98/56
[2019-07-18] MEDS ORDERED: PNEUMOCOCCAL 23-VAL P-SAC VAC 0.5 ML IM ONE (12:00)
[2019-07-18] MEDS ORDERED: ATORVASTATIN CALCIUM 40MG TABLET PO SCH (21:00)
== END 2019-07-18 11:35 | disposition home or self-care (01) | DRG 291 ==
LOC: ER 01:35 → 6WST 04:20 → EDBEDREQ 04:31 → EDBEDREQTM 04:31 → EDBEDREQSVC 04:31 → ENRESERV 20:49
PROVIDERS: ADMIT Hospitalist; ATTEND Hospitalist
PROC: 5A09357 Assistance with Respiratory Ventilation, Less than 24 Consecutive Hours, Continuous Positive Airway Pressure (ICD-10-PCS; principal; 2019-07-17)
DX: I11.0 Hypertensive heart disease with heart failure (principal); J96.01 Acute respiratory failure with hypoxia; E44.0 Moderate protein-calorie malnutrition; J84.9 Interstitial pulmonary disease, unspecified; I50.43 Acute on chronic combined systolic (congestive) and diastolic (congestive) heart failure; I42.9 Cardiomyopathy, unspecified; D64.9 Anemia, unspecified; E11.65 Type 2 diabetes mellitus with hyperglycemia; I25.10 Atherosclerotic heart disease of native coronary artery without angina pectoris; E78.5 Hyperlipidemia, unspecified; I34.0 Nonrheumatic mitral (valve) insufficiency; I95.9 Hypotension, unspecified; F17.210 Nicotine dependence, cigarettes, uncomplicated; Z95.1 Presence of aortocoronary bypass graft; Z88.0 Allergy status to penicillin; Z79.84 Long term (current) use of oral hypoglycemic drugs; Z79.82 Long term (current) use of aspirin; Z79.899 Other long term (current) drug therapy; Z71.6 Tobacco abuse counseling; Z68.22 Body mass index [BMI] 22.0-22.9, adult
CPT/HCPCS: 36415; 36600; 71045; 80053; 82375; 82805; 82962; 83036; 83880; 84484; 85025; 90732; 93005; 99291; J1650; J1815; J1940; J2405

== ENCOUNTER 2020-05-25 02:30 | Inpatient (IN) | payer MEDICARE, OTHER ==
[~2020-05-25] VITALS: Ht 172.7 cm; Wt 66.2 kg
[2020-05-25] VITALS (17 sets, daily range): BP systolic 97–121; BP diastolic 52–84
[~2020-05-25 02:30] MED LIST changes: -CLOT15CR2 TP; +CLOT15CR27 TP; +LISI10TA26 PO; -LISI10TA5 PO
[2020-05-25] MEDS ORDERED: ONDANSETRON HCL 4MG/2ML INJ IV STA (02:58)
[2020-05-25] MEDS ORDERED: NITROGLYCERIN OINT 1GM/INCH UDPKT TD ONE (03:00)
[2020-05-25 03:20] LABS: BG BASE EXCESS -3.3 mmol/L (-2.0-2.0); BG CARBOXYHEMOGLOBIN 4.9 % (0.5-1.5); BG FRACTION INSPIRED OXYGEN 52; BG METHEMOGLOBIN 0.1 % (0.0-1.5); BG PCO2 40.4 mmHg (35.0-45.0); BG PH 7.354 (7.350-7.450); BG PO2 46.1 mmHg (75.0-100.0); BG TOTAL HEMOGLOBIN 14.8 g/dL (12.0-18.0); BG VENT MODE MASK - SIMPLE
[2020-05-25 03:36] LABS: BASOPHILS % 0.6 % (0.0-2.0); EOSINOPHILS % 0.7 % (0.0-5.0); HEMATOCRIT. 43.6 % (42.0-52.0); HEMOGLOBIN. 13.9 g/dL (14.0-18.0); MEAN CORPUSCULAR HEMOGLOBIN 27.9 pg (28.0-32.0); MEAN CORPUSCULAR VOLUME 87.7 fL (80.0-94.0); MEAN PLATELET VOLUME 8.9 fl (7.4-10.4); MONOCYTES % 7.1 % (2.0-8.0); NEUTROPHILS % 83.6 % (40.0-76.0); PLATELET 189 x1000/uL (130-400); RED BLOOD CELL COUNT 4.98 mill/uL (4.7-6.1); RED CELL DISTRIBUTION WIDTH 18.8 % (11.6-14.6)
[2020-05-25] MEDS ORDERED: CEFTRIAXONE 1 G PREMIX 50 ML IV ONE (03:45)
[2020-05-25] MEDS ORDERED: AZITHROMYCIN 500 MG in DEXT 5% WATER 250 ML IV ONE (03:45)
[2020-05-25 03:46] LABS: CHLORIDE 105 mEq/L (98-107)
[2020-05-25 03:47] LABS: INR 1.1; PROTHROMBIN TIME 11.5 sec (9.6-11.0)
[2020-05-25] MEDS ORDERED: ALBUTEROL 6.7GM HFA INHALER ORI PRN (09:15)
[2020-05-25] MEDS ORDERED: ACETAMINOPHEN 325MG TABLET PO PRN (09:15)
[2020-05-25] MEDS ORDERED: DEXTROSE 50% WATER 50ML SYRINGE IV PRN (09:15)
[2020-05-25] MEDS: FUROSEMIDE 40MG/4ML VIAL IVP SCH ×2 (10:09→17:04)
[2020-05-25] MEDS: ENOXAPARIN 40MG/0.4ML SYR SUBCUT SCH (10:09)
[2020-05-25] MEDS: BLOOD SUGAR DIAGNOSTIC STRIP TEST SCH ×3 (12:04→21:52)
[2020-05-25] MEDS: INSULIN LISPRO 100 UNITS/ML SUBCUT SCH ×3 (12:05→21:00)
[2020-05-25 13:13] LABS: CLARITY URINE CLEAR (CLEAR); COLOR URINE YELLOW (YELLOW); KETONES URINE NEGATIVE (NEGATIVE); LEUKOCYTE ESTERASE URINE NEGATIVE (NEGATIVE); NITRITE URINE NEGATIVE (NEGATIVE); OCCULT BLOOD URINE TRACE (NEGATIVE); PROTEIN URINE 3+ (NEGATIVE); SPECIFIC GRAVITY URINE 1.014 (1.005-1.030)
[2020-05-25] MEDS: BACLOFEN 10MG TABLET PO SCH (17:04)
[2020-05-25] MEDS: CEFTRIAXONE 1,000 MG in DEXTROSE 5% WATER 50 ML IV SCH (21:52)
[2020-05-25] MEDS: ONDANSETRON HCL 4MG/2ML INJ IV PRN (22:53)
[2020-05-26] VITALS: BP 101/46
[2020-05-26 04:00] VITALS: BP 111/67
[2020-05-26] MEDS: BLOOD SUGAR DIAGNOSTIC STRIP TEST SCH ×4 (05:48→21:28)
[2020-05-26 07:44] LABS: BASOPHILS % 0.5 % (0.0-2.0); EOSINOPHILS % 2.4 % (0.0-5.0); HEMATOCRIT. 38.7 % (42.0-52.0); HEMOGLOBIN. 12.7 g/dL (14.0-18.0); LYMPHOCYTES % 15.8 % (20.0-50.0); MEAN CORPUSCULAR HEMOGLOBIN 28.9 pg (28.0-32.0); MEAN CORPUSCULAR VOLUME 88.1 fL (80.0-94.0); MEAN PLATELET VOLUME 9.3 fl (7.4-10.4); MONOCYTES % 12.4 % (2.0-8.0); NEUTROPHILS % 68.9 % (40.0-76.0); PLATELET 172 x1000/uL (130-400); RED BLOOD CELL COUNT 4.39 mill/uL (4.7-6.1); RED CELL DISTRIBUTION WIDTH 18.7 % (11.6-14.6)
[2020-05-26 08:00] VITALS: BP 119/69
[2020-05-26] MEDS: INSULIN LISPRO 100 UNITS/ML SUBCUT SCH ×4 (08:10→21:57)
[2020-05-26 08:24] LABS: BG BASE EXCESS -1.4 mmol/L (-2.0-2.0); BG CARBOXYHEMOGLOBIN 1.3 % (0.5-1.5); BG DEOXYHEMOGLOBIN 2.7 % (0.0-5.0); BG FRACTION INSPIRED OXYGEN 28; BG HCO3 ACT 23.5 mmol/L (22.0-26.0); BG METHEMOGLOBIN 0.3 % (0.0-1.5); BG OXYGEN SATURATION 97.3 % (92.0-98.5); BG OXYHEMOGLOBIN 95.7 % (94.0-97.0); BG PCO2 40.2 mmHg (35.0-45.0); BG PH 7.385 (7.350-7.450); BG PO2 97.4 mmHg (75.0-100.0); BG SAMPLE SITE RIGHT BRACHIAL; BG TOTAL HEMOGLOBIN 15.4 g/dL (12.0-18.0); BG VENT MODE NASAL CANNULA
[2020-05-26 08:33] LABS: CHLORIDE 107 mEq/L (98-107)
[2020-05-26] MEDS: FUROSEMIDE 40MG/4ML VIAL IVP SCH ×2 (09:09→17:01)
[2020-05-26] MEDS: BACLOFEN 10MG TABLET PO SCH ×3 (09:09→17:01)
[2020-05-26] MEDS: ENOXAPARIN 40MG/0.4ML SYR SUBCUT SCH (09:10)
[2020-05-26] MEDS: AZITHROMYCIN 250 MG TABLET PO SCH (09:10)
[2020-05-26] MEDS: IPRATROPIUM/ALBUTEROL 0.5-3(2.5)MG/3ML NEB HHN SCH ×3 (09:19→20:15)
[2020-05-26 11:56] LABS: HEPATITIS B SURFACE ANTIGEN NEGATIVE
[2020-05-26 12:00] VITALS: BP 144/58
[2020-05-26 12:25] LABS: HEPATITIS A AB IGM NEGATIVE (NEGATIVE)
[2020-05-26 16:00] VITALS: BP 119/58
[2020-05-26] MEDS: ONDANSETRON HCL 4MG/2ML INJ IV PRN (17:09)
[2020-05-26 20:00] VITALS: BP 134/62
[2020-05-26] MEDS: CEFTRIAXONE 1,000 MG in DEXTROSE 5% WATER 50 ML IV SCH (21:28)
[2020-05-27] VITALS: BP 130/88
[2020-05-27] MEDS: IPRATROPIUM/ALBUTEROL 0.5-3(2.5)MG/3ML NEB HHN SCH ×3 (00:12→21:52)
[2020-05-27 04:00] VITALS: BP 126/70
[2020-05-27] MEDS: BLOOD SUGAR DIAGNOSTIC STRIP TEST SCH ×4 (05:19→20:36)
[2020-05-27] MEDS: INSULIN LISPRO 100 UNITS/ML SUBCUT SCH ×4 (07:40→20:37)
[2020-05-27 08:00] VITALS: BP 130/88
[2020-05-27] MEDS: BACLOFEN 10MG TABLET PO SCH ×3 (08:43→17:09)
[2020-05-27] MEDS: AZITHROMYCIN 250 MG TABLET PO SCH (08:43)
[2020-05-27] MEDS: FUROSEMIDE 40MG/4ML VIAL IVP SCH ×2 (08:43→17:10)
[2020-05-27] MEDS: ENOXAPARIN 40MG/0.4ML SYR SUBCUT SCH (08:50)
[2020-05-27 12:00] VITALS: BP 128/71
[2020-05-27] MEDS ORDERED: EZ-HD SUSPENSION(BARIUM SULFATE 340GM) PO ONE (15:24)
[2020-05-27] MEDS ORDERED: BARIUM SULFATE 176 GM SUSP.RECON ONE (15:25)
[2020-05-27 16:30] VITALS: BP 130/67
[2020-05-27 20:00] VITALS: BP 113/63
[2020-05-27] MEDS: CEFTRIAXONE 1,000 MG in DEXTROSE 5% WATER 50 ML IV SCH (20:36)
[2020-05-28] VITALS: BP 115/66
[2020-05-28] MEDS: IPRATROPIUM/ALBUTEROL 0.5-3(2.5)MG/3ML NEB HHN SCH ×2 (02:45→09:22)
[2020-05-28] MEDS: ONDANSETRON HCL 4MG/2ML INJ IV PRN (02:58)
[2020-05-28 04:00] VITALS: BP 122/64
[2020-05-28] MEDS: BLOOD SUGAR DIAGNOSTIC STRIP TEST SCH ×2 (05:52→12:53)
[2020-05-28] MEDS: INSULIN LISPRO 100 UNITS/ML SUBCUT SCH ×2 (05:56→13:10)
[2020-05-28 08:00] VITALS: BP 112/63
[2020-05-28] MEDS: BACLOFEN 10MG TABLET PO SCH ×2 (08:42→13:11)
[2020-05-28] MEDS: AZITHROMYCIN 250 MG TABLET PO SCH (08:42)
[2020-05-28] MEDS: FUROSEMIDE 40MG/4ML VIAL IVP SCH (08:42)
[2020-05-28] MEDS: ENOXAPARIN 40MG/0.4ML SYR SUBCUT SCH (08:43)
[2020-05-28] MEDS ORDERED: ALBU6.7H9 ORI (09:20)
[2020-05-28] MEDS ORDERED: FURO-151 MT (09:20)
[2020-05-28] MEDS ORDERED: LISI10TA26 PO (09:20)
[2020-05-28] MEDS ORDERED: POTA20TA82 MT (09:20)
[2020-05-28 12:00] VITALS: BP 123/69
[2020-05-28 12:09] VITALS: BP 123/69
[2020-05-28 12:27] VITALS: BP 123/69
== END 2020-05-28 14:30 | disposition home or self-care (01) | DRG 871 ==
LOC: ER 03:25 → MICUSO 04:55 → ENRESERV 07:09 → 7WST 16:25 → 8WST 05-26 09:57
PROVIDERS: ADMIT Internal Medicine; ATTEND Internal Medicine
PROC: 5A09357 Assistance with Respiratory Ventilation, Less than 24 Consecutive Hours, Continuous Positive Airway Pressure (ICD-10-PCS; 2020-05-25)
PROC: BD11ZZZ Fluoroscopy of Esophagus (ICD-10-PCS; principal; 2020-05-27)
DX: A41.9 Sepsis, unspecified organism (principal); J96.01 Acute respiratory failure with hypoxia; J18.9 Pneumonia, unspecified organism; I50.43 Acute on chronic combined systolic (congestive) and diastolic (congestive) heart failure; E44.1 Mild protein-calorie malnutrition; J44.0 Chronic obstructive pulmonary disease with (acute) lower respiratory infection; I42.9 Cardiomyopathy, unspecified; I11.0 Hypertensive heart disease with heart failure; Z20.822 Contact with and (suspected) exposure to COVID-19; R13.10 Dysphagia, unspecified; L30.9 Dermatitis, unspecified; E11.9 Type 2 diabetes mellitus without complications; I34.0 Nonrheumatic mitral (valve) insufficiency; R74.01 Elevation of levels of liver transaminase levels; F17.210 Nicotine dependence, cigarettes, uncomplicated; I25.10 Atherosclerotic heart disease of native coronary artery without angina pectoris; I25.2 Old myocardial infarction; Z95.1 Presence of aortocoronary bypass graft; Z88.0 Allergy status to penicillin; Z79.82 Long term (current) use of aspirin; Z79.84 Long term (current) use of oral hypoglycemic drugs; Z79.899 Other long term (current) drug therapy; Z68.22 Body mass index [BMI] 22.0-22.9, adult; D72.829 Elevated white blood cell count, unspecified; R07.9 Chest pain, unspecified; L40.9 Psoriasis, unspecified
CPT/HCPCS: 36415; 36600; 71045; 74220; 76700; 80048; 80053; 80076; 81003; 82375; 82805; 82962; 83605; 83880; 84145; 84484; 85025; 86705; 86709; 86803; 87015; 87045; 87340; 87427; 87449; 87493; 93306; 94640; 94660; 99291; J0456; J0696; J1650; J1815; J1940; J2405; J7040; J7060; U0003

== ENCOUNTER 2023-05-24 13:27 | Emergency (ER) | payer MEDICARE, BC ==
[~2023-05-24] VITALS: Ht 175.3 cm; Wt 68.0 kg
[~2023-05-24 13:27] MED LIST changes: +ALBU6.7H3 ORI; +FURO-151 MT; +POTA-205 MT
[2023-05-24 14:03] VITALS: PULSE 74; TEMP 98.4; O2SAT 99
[2023-05-24] MEDS ORDERED: LIDOCAINE 5% PATCH TOP SCH (16:30)
[2023-05-24 18:00] VITALS: BP 141/95; RESP 18
[2023-05-24] MEDS: LIDOCAINE 5% PATCH TOP SCH (18:00)
[2023-05-24 18:48] LABS: CLARITY URINE CLEAR (CLEAR); COLOR URINE YELLOW (YELLOW); GLUCOSE URINE 3+ (NEGATIVE); KETONES URINE NEGATIVE (NEGATIVE); LEUKOCYTE ESTERASE URINE NEGATIVE (NEGATIVE); NITRITE URINE NEGATIVE (NEGATIVE); OCCULT BLOOD URINE NEGATIVE (NEGATIVE); PROTEIN URINE 1+ (NEGATIVE); SPECIFIC GRAVITY URINE 1.017 (1.005-1.030); UROBILINOGEN URINE 0.2 E.U./dL (0.2-1.0)
[2023-05-24 19:01] LABS: BACTERIA URINE NONE SEEN; RBC URINE NONE SEEN /hpf (0-2); SQUAMOUS EPITHELIAL CELL URINE 1+ /lpf (RARE/1+); WBC URINE 0-2 /hpf (0-2)
== END 2023-05-24 19:59 | disposition home or self-care (01) ==
LOC: ER 13:27
DX: M54.50 Low back pain, unspecified (principal); I11.0 Hypertensive heart disease with heart failure; I50.9 Heart failure, unspecified; J44.1 Chronic obstructive pulmonary disease with (acute) exacerbation; Z88.0 Allergy status to penicillin; Z79.899 Other long term (current) drug therapy; Z79.82 Long term (current) use of aspirin; Z98.890 Other specified postprocedural states
CPT/HCPCS: 74176; 81003; 99284

== ENCOUNTER 2024-10-29 07:39 | Inpatient (IN) | payer MEDICARE, MEDICAID ==
[~2024-10-29] VITALS: Ht 175.3 cm; Wt 60.3 kg
[2024-10-29 07:42] VITALS: O2SAT 99
[2024-10-29] MEDS: ACETAMINOPHEN 325MG TABLET PO ONE (08:11)
[2024-10-29] MEDS: MAGNESIUM 2 G PREMIX 50 ML IV ONE (08:42)
[2024-10-29 08:44] LABS: HEMATOCRIT. 35.3 % (42.0-52.0); HEMOGLOBIN. 11.5 g/dL (14.0-18.0); MEAN PLATELET VOLUME 7.7 fl (7.4-10.4); PLATELET 295 x1000/uL (130-400); RED BLOOD CELL COUNT 4.31 mill/uL (4.7-6.1); RED CELL DISTRIBUTION WIDTH 18.7 % (11.6-14.6)
[2024-10-29 09:03] LABS: CREATININE 1.2 mg/dL (0.6-1.3); TROPONIN I HIGH SENSITIVITY 18 ng/L (3.0-53); UREA NITROGEN BLOOD 14 mg/dL (9-23)
[2024-10-29 09:05] LABS: ASPARTATE AMINOTRANSFERASE 12 IU/L (<34); BILIRUBIN DIRECT 0.2 mg/dL (<=3.0); BILIRUBIN TOTAL 0.5 mg/dL (0.1-1.0); PROTEIN TOTAL 7.7 g/dL (6.0-8.3)
[2024-10-29 10:05] LABS: TROPONIN I HIGH SENSITIVITY 18 ng/L (3.0-53)
[2024-10-29 10:30] VITALS: BP 131/63; PULSE 79; RESP 20; TEMP 36.5292
[2024-10-29] MEDS ORDERED: ONDANSETRON HCL 4MG/2ML INJ IV PRN (11:45)
[2024-10-29 11:59] VITALS: BP 131/63; PULSE 79; RESP 20; TEMP 36.5; O2SAT 98
[2024-10-29 12:00] VITALS: BP 136/67; PULSE 77
[2024-10-29] MEDS ORDERED: DEXTROSE 50% WATER 50ML SYRINGE IV PRN (12:30)
[2024-10-29] MEDS ORDERED: LEVOFLOXACIN 500MG PREMIX 100 ML IV SCH (12:30)
[2024-10-29] MEDS: BLOOD SUGAR DIAGNOSTIC STRIP TEST SCH (12:40)
[2024-10-29] MEDS: INSULIN LISPRO 100 UNITS/ML SUBCUT SCH (13:10)
[2024-10-29] MEDS: HYDROCODONE/ACETAMINOPHEN 10/325MG TABLET PO PRN (13:53)
[2024-10-29] MEDS: BACLOFEN 10MG TABLET PO SCH (13:53)
[2024-10-29] MEDS: VANCOMYCIN 1.5GM PMX (XELLIA) 300 ML IV SCH (13:54)
[2024-10-29 15:53] LABS: CLARITY URINE CLEAR (CLEAR); GLUCOSE URINE 3+ (NEGATIVE); KETONES URINE 1+ (NEGATIVE); LEUKOCYTE ESTERASE URINE NEGATIVE (NEGATIVE); NITRITE URINE NEGATIVE (NEGATIVE); OCCULT BLOOD URINE NEGATIVE (NEGATIVE); PH URINE 5.5 (4.5-8.0); PROTEIN URINE NEGATIVE (NEGATIVE); SPECIFIC GRAVITY URINE 1.019 (1.005-1.030); UROBILINOGEN URINE 1.0 E.U./dL (0.2-1.0)
[2024-10-29 16:17] LABS: COLOR URINE STRAW (YELLOW)
[2024-10-29 16:18] LABS: BACTERIA URINE NONE SEEN; RBC URINE NONE SEEN /hpf (0-2); SQUAMOUS EPITHELIAL CELL URINE RARE /lpf (RARE/1+); WBC URINE 0-2 /hpf (0-2)
[2024-10-29] MEDS: ENOXAPARIN 40MG/0.4ML SYR SUBCUT SCH (16:22)
[2024-10-29] MEDS: ACETAMINOPHEN 325MG TABLET PO PRN (16:27)
[2024-10-29 17:12] VITALS: BP 114/45; PULSE 77; RESP 20; TEMP 37; O2SAT 96
[2024-10-29] MEDS: CEFTRIAXONE 1GM/50ML 50 ML IV SCH (17:44)
[2024-10-29 20:36] VITALS: BP 110/52; PULSE 67; RESP 20; TEMP 36.2; O2SAT 96
[2024-10-29] MEDS: ATORVASTATIN CALCIUM 40MG TABLET PO SCH (21:10)
[2024-10-30 00:16] VITALS: BP_SYST 103; BP_SYST 127; BP_SYST 129; BP_DIAS 57; BP_DIAS 58; BP_DIAS 64; PULSE 68; RESP 18; O2SAT 96
[2024-10-30 04:00] VITALS: BP 128/58; PULSE 63; RESP 16; RESP 19; TEMP 36.6; O2SAT 97; O2SAT 98
[2024-10-30 08:28] VITALS: BP 110/66; PULSE 64; RESP 18; TEMP 37.2; O2SAT 97
[2024-10-30] MEDS: ASPIRIN 81MG TABLET PO SCH (08:58)
[2024-10-30] MEDS: VANCOMYCIN 1.25GM/250ML 250 ML IV SCH (14:27)
[2024-10-30 16:37] VITALS: BP 127/58; PULSE 72; RESP 18; TEMP 37.1; O2SAT 99
[2024-10-30 20:00] VITALS: BP_SYST 114; BP_SYST 123; BP_SYST 125; BP_SYST 128; BP_DIAS 59; BP_DIAS 60; BP_DIAS 61; BP_DIAS 63; PULSE 71; PULSE 78; RESP 18; TEMP 36.4; TEMP 36.9; O2SAT 97; O2SAT 98
[2024-10-31] VITALS: BP 106/60; PULSE 78; RESP 18; TEMP 36.4; O2SAT 98
[2024-10-31 04:00] VITALS: BP 141/59; PULSE 69; RESP 18; TEMP 37; O2SAT 98
[2024-10-31 07:50] LABS: BASOPHILS % 0.7 % (0.0-2.0); EOSINOPHILS % 2.1 % (0.0-5.0); HEMATOCRIT. 33.1 % (42.0-52.0); HEMOGLOBIN. 10.9 g/dL (14.0-18.0); LYMPHOCYTES % 23.4 % (20.0-50.0); MEAN PLATELET VOLUME 7.7 fl (7.4-10.4); MONOCYTES % 8.8 % (2.0-8.0); NEUTROPHILS % 65.0 % (40.0-76.0); PLATELET 271 x1000/uL (130-400); RED BLOOD CELL COUNT 4.08 mill/uL (4.7-6.1); RED CELL DISTRIBUTION WIDTH 18.4 % (11.6-14.6)
[2024-10-31 07:56] LABS: CREATININE 0.7 mg/dL (0.6-1.3)
[2024-10-31 07:57] LABS: UREA NITROGEN BLOOD 9 mg/dL (9-23)
[2024-10-31 08:00] VITALS: BP 115/53; PULSE 93; RESP 20; TEMP 36.3; O2SAT 99
[2024-10-31] MEDS ORDERED: LEVO750T68 MT (11:43)
[2024-10-31] MEDS ORDERED: SULF1TAB48 MT (11:43)
[2024-10-31 12:00] VITALS: BP 127/70; PULSE 99; RESP 16; TEMP 36.3; O2SAT 99
[2024-10-31] MEDS ORDERED: NALOXONE HCL 0.4MG/ML VIAL IV PRN (17:00)
[2024-10-31 17:49] VITALS: BP 127/70; PULSE 56; TEMP 97.3
[2024-10-31 18:30] VITALS: BP 127/70; PULSE 56; RESP 16
== END 2024-10-31 19:28 | disposition home health service (06) | DRG 73 ==
LOC: ER 07:54 → 7WST 08:59 → EDBEDREQTM 09:03 → EDBEDREQ 09:03 → ENRESERV 09:17
PROVIDERS: ADMIT Internal Medicine; ATTEND Internal Medicine
DX: G90.89 Other disorders of autonomic nervous system (principal); I50.23 Acute on chronic systolic (congestive) heart failure; E11.52 Type 2 diabetes mellitus with diabetic peripheral angiopathy with gangrene; I42.9 Cardiomyopathy, unspecified; D64.9 Anemia, unspecified; I25.10 Atherosclerotic heart disease of native coronary artery without angina pectoris; J44.9 Chronic obstructive pulmonary disease, unspecified; I11.0 Hypertensive heart disease with heart failure; F17.200 Nicotine dependence, unspecified, uncomplicated; E78.00 Pure hypercholesterolemia, unspecified; F17.210 Nicotine dependence, cigarettes, uncomplicated; I25.2 Old myocardial infarction; Z95.1 Presence of aortocoronary bypass graft; Z79.899 Other long term (current) drug therapy; Z88.0 Allergy status to penicillin
CPT/HCPCS: 36415; 71045; 73630; 80048; 80076; 80202; 81003; 82962; 84484; 85025; 87070; 87077; 87186; 93005; 93306; 99291; J0696; J1650; J1815; J3373; J3475